=== PATIENT | male | born 1980 | race Caucasian/White ===

== ENCOUNTER 2022-09-19 10:49 | Emergency (ER) | payer OTHER ==
[~2022-09-19] VITALS: Ht 180.3 cm; Wt 94.8 kg
[2022-09-19 11:03] VITALS: BP 135/83
[2022-09-19] MEDS ORDERED: DICYCLOMINE 10 MG CAP PO ONE (12:20)
[2022-09-19] MEDS ORDERED: FAMOTIDINE 20 MG/2 ML VIAL IVP ONE (12:20)
[2022-09-19] MEDS ORDERED: NACL 0.9% 1,000 ML IV ONE (12:20)
[2022-09-19] MEDS ORDERED: FAMO-90 PO (13:52)
[2022-09-19] MEDS ORDERED: BEN10 PO (13:52)
--- NOTE | 2022-09-19 14:01 | NUR ---
The patient's care was reviewed and supervised by Lizeth Trejo RN.
[2022-09-19 14:05] VITALS: BP 137/76
--- NOTE | 2022-09-19 14:05 | NUR ---
Patient discharged with v/s stable. Written and verbal after care instructions ABOUT DIARRHEA given and explained. Patient alert, oriented and verbalized understanding of instructions. Ambulatory with steady gait. All questions addressed prior to discharge. ID band removed. Patient advised to follow up with PMD. Rx of BENTYL AND PEPCID given. Patient educated on indication of medication including possible reaction and side effects. Opportunity to ask questions provided and answered.
== END 2022-09-19 14:05 | disposition home or self-care (01) ==
LOC: MED 10:49
DX: R19.7 Diarrhea, unspecified (principal); R10.9 Unspecified abdominal pain; Z79.899 Other long term (current) drug therapy; Z98.890 Other specified postprocedural states
CPT/HCPCS: 96361; 96374; 99283; J3490

== ENCOUNTER 2023-02-02 10:46 | Emergency (ER) | payer OTHER ==
[~2023-02-02] VITALS: Ht 175.3 cm; Wt 108.0 kg
[~2023-02-02 10:46] MED LIST: BEN10 PO; FAMO-90 PO
[2023-02-02 11:10] VITALS: BP 133/91
--- NOTE | 2023-02-02 11:35 | NUR ---
42 YO MALE ANDERSON PRESENTS TO THE ED WITH BODY ACHES, FATIGUE, AND EYE DISCOMFORT. PATIENT STATES THIS HAS BEEN GOING ON SINCE MONDAY, STATED IT STARTED TO BUILD UP GRADUALLY. DENIES AND MEDICAL HISTORY AND ALLERGIES. PAIN 9/10 CHEST, BACK, NECK
--- NOTE | 2023-02-02 12:26 | NUR ---
PATIENT RETURNED FROM CT
[2023-02-02] MEDS ORDERED: KETOROLAC 30 MG/ML VIAL IM ONE (12:35)
[2023-02-02] MEDS ORDERED: LIDOCAINE 2% 1000 MG/50 ML VIAL INJ ONE ×2 (12:39→12:40)
[2023-02-02 12:40] LABS: BASOPHILS % (AUTO) 0.3 % (0.0-2.0); EOSINOPHILS % (AUTO) 0.1 % (0.0-4.0); HEMATOCRIT 43.6 % (36-52); LYMPHOCYTES # (AUTO) 0.6 K/uL (2.0-11.5); LYMPHOCYTES % (AUTO) 15.5 % (20.5-51.1); MEAN CORPUSCULAR HEMOGLOBIN 29 pg (27-31); MEAN CORPUSCULAR HGB CONC 35 g/dL (33-37); MEAN CORPUSCULAR VOLUME 82.8 fL (80-94); MONOCYTES # (AUTO) 0.3 K/uL (0.8-1.0); MONOCYTES % (AUTO) 9.1 % (1.7-9.3); NEUTROPHILS # (AUTO) 2.8 K/uL (1.8-7.7); PLATELET COUNT (AUTO) 112 K/uL (140-450); RED BLOOD CELL COUNT(AUTO) 5.26 MIL/uL (4.20-6.10); RED CELL DISTRIBUTION WIDTH 13.3 % (11.6-13.7); WHITE BLOOD COUNT (AUTO) 3.7 K/uL (4.8-10.8)
[2023-02-02 12:59] LABS: ALBUMIN 3.9 g/dL (3.4-5.0); ANION GAP 11.6 (8-16); CARBON DIOXIDE 28.4 mmol/L (21-32); CREATININE 0.9 mg/dL (0.6-1.3); THYROID STIMULATING HORMONE 0.93 uIU/mL (0.34-3.74); TOTAL BILIRUBIN 0.9 mg/dL (0.0-1.0)
[2023-02-02] MEDS ORDERED: ACET-10509 PO (13:46)
[2023-02-02] MEDS ORDERED: NAPR-54 PO (13:46)
[2023-02-02 14:00] VITALS: BP 133/91
--- NOTE | 2023-02-02 14:00 | NUR ---
Patient discharged with v/s stable. Written and verbal after care instructions given and explained. Patient alert, oriented and verbalized understanding of instructions. Ambulatory with steady gait. All questions addressed prior to discharge. ID band removed. Patient advised to follow up with PMD. Rx of tylenol, naproxen (sent) given. Patient educated on indication of medication including possible reaction and side effects. Opportunity to ask questions provided and answered. copy of labs and imaging given
== END 2023-02-02 14:00 | disposition home or self-care (01) ==
LOC: MED 10:46
DX: B34.9 Viral infection, unspecified (principal); D69.6 Thrombocytopenia, unspecified; R51.9 Headache, unspecified; Z79.899 Other long term (current) drug therapy; Z79.1 Long term (current) use of non-steroidal anti-inflammatories (NSAID)
CPT/HCPCS: 36415; 70450; 80053; 84443; 85025; 96372; 99285; J1885; J2001